=== PATIENT | male | born 1980 | race Hispanic/Latino ===

== ENCOUNTER 2025-05-26 08:08 | Emergency (ER) | payer SELFPAY ==
[2025-05-26 08:11] VITALS: BP 147/92
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
[2025-05-26] MEDS: MOTRIN 600 MG PO (09:46)
[2025-05-26 09:50] VITALS: BP 147/80
== END 2025-05-26 09:50 | disposition home or self-care (01) ==
LOC: EMR 08:08
PROVIDERS: EMERGENCY PHYSICIAN Emergency Medicine
DX: S16.1XXA Strain of muscle, fascia and tendon at neck level, initial encounter (principal); S89.92XA Unspecified injury of left lower leg, initial encounter; M54.6 Pain in thoracic spine; V59.49XA Driver of pick-up truck or van injured in collision with other motor vehicles in traffic accident, initial encounter
CPT/HCPCS: 99283; 72050; 72072